=== PATIENT | female | born 1985 | race Two or more races ===

== ENCOUNTER 2017-01-03 12:56 | Emergency (ER) | payer BC ==
[~2017-01-03] VITALS: Ht 154.9 cm; Wt 161.0 kg
[2017-01-03 13:01] VITALS: Ht 154.9 cm; Wt 161.0 kg
[2017-01-03] MEDS ORDERED: SOD CHLORIDE 0.9% 1,000 ML IV STA ×2 (13:24→14:49)
[2017-01-03] MEDS ORDERED: MECLIZINE 12.5 MG TAB PO ONE (13:30)
[2017-01-03 13:58] LABS: ADD SCAN DIFF NO
[2017-01-03 14:01] LABS: BASOPHILS % 0.5 % (0.0-2.0); EOSINOPHILS # 0.1 10^3/ul (0.0-0.5); HEMATOCRIT 33.8 % (37.0-47.0); HEMOGLOBIN 10.9 g/dl (12.0-16.0); LYMPHOCYTES # 1.9 10^3/ul (0.8-2.9); LYMPHOCYTES % 29.3 % (15.0-51.0); MEAN CORPUSCULAR HEMOGLOBIN 28.1 pg (29.0-33.0); MEAN CORPUSCULAR HGB CONC 32.2 g/dl (32.0-37.0); MEAN CORPUSCULAR VOLUME 87.1 fl (82.0-101.0); MEAN PLATELET VOLUME 10.6 fl (7.4-10.4); MONOCYTE # 0.5 10^3/ul (0.3-0.9); MONOCYTES % 7.3 % (0.0-11.0); NEUTROPHIL # 3.9 10^3/ul (1.6-7.5); NEUTROPHILS % 61.6 % (39.0-77.0); PLATELET COUNT 198 10^3/UL (140-415); RED BLOOD COUNT 3.88 10^6/ul (4.20-5.40); RED CELL DISTRIBUTION WIDTH 12.8 % (11.5-14.5); WHITE BLOOD COUNT 6.3 10^3/ul (4.8-10.8)
[2017-01-03 14:16] LABS: INR 1.11; PROTIME 14.3 Sec (12.2-14.2); PT RATIO 1.1
--- NOTE | 2017-01-03 14:16 | RADRPT ---
PROCEDURE: CT brain without contrast CLINICAL INDICATION: Syncope TECHNIQUE: CT of the brain without contrast was performed on a multidetector CT scanner, with multi planar reformats. One or more of the following dose reduction techniques were used: Automated expos ure control, adjustment in mA and / or kV according to patient size, use of iterative reconstructive technique. CTDIvol = 44 mGy; DLP = 630 mGy-cm. COMPARISON: 03/03/2015 FINDINGS: No acute intracranial hemorrhage is identified. No extra-axial fluid collection is seen. There is no mass effect. No midline shift is identified. Ventricles and sulci are within normal limits for size and configuration. The density of the brain is within normal limits. Hi-white differentiation is preserved. Osseous structures are unremarkable. Mastoid air cells and imaged paranasal sinuses grossly clear. IMPRESSION: Unremarkable noncontrast CT of the brain. RPTAT: VV .Sonny Gutierrez MD, MD Date Time Electronically viewed and signed by .Sonny Gutierrez MD, on 01/03/2017 14:16 .O/
[2017-01-03 14:17] LABS: PARTIAL THROMBOPLASTIN TIME 32.3 Sec (25.0-35.0)
--- NOTE | 2017-01-03 14:17 | ERD ---
ER Documentation Chief Complaint Date/Time DATE: 01/03/17 TIME: 13:55 Chief Complaint BROUGHT IN VIA EMS DUE TO WITNESSED SYNCOPAL EPISODE HPI This is a 31-year-old female presents to the emergency department brought in by EMS after she experienced a brief transient loss of consciousness, with loss of postural tone, and complete spontaneous recovery after 30 seconds. The patient was in school when this happened just prior to arrival. The patient indicates that yesterday evening, just prior to going to bed, she developed a sudden onset of vertigo which she felt as though the room was spinning around her, nausea, with a tinnitus in her right ear. The patient felt unsteady in her gait while she was standing at school when she had the syncope episode and was caught by her teacher. She denies a headache or changes in vision. She states she has never had any similar episodes in the past. She denies fever shaking or chills and has no neck pain. The patient denies any slurred speech dysarthria or weakness of her upper and lower extremities. The patient denied any hemoptysis hematemesis or melanotic stools. The patient has no past medical history other than gestational hypertension which occurred with her second child who is 3 years of age and she also has a 5-year-old child at home. EMS indicated her blood pressure was 170/120 at the scene. ROS All systems reviewed and are negative except as per history of present illness. Medications Home Meds Reported Medications Aspirin* (Aspirin* Chew) 81 Mg Tab.chew, 81 MG PO DAILY, TAB.CHEW 01/03/17 Allergies Allergies: Coded Allergies: No Known Allergy (Unverified , 03/02/15) PMhx/Soc Medical and Surgical Hx: pt denies Medical Hx, pt denies Surgical Hx Hx Alcohol Use: No Hx Substance Use: No Hx Tobacco Use: No Smoking Status: Never smoker Physical Exam Vitals Vital Signs Date Time Temp Pulse Resp B/P Pulse Ox O2 Delivery O2 Flow Rate FiO2 01/03/17 14:16 62 154/103 67 145/100 64 143/107 01/03/17 13:01 98.3 88 18 143/100 Physical Exam Constitutional:Well-developed. Well-nourished. HEENT:Normocephalic. Atraumatic.Pupils were equal round reactive to light. Moist mucous membranes.No tonsillar exudates. Erythremia and bulging of the right tympanic membrane with no postauricular tenderness bilaterally. Neck: No nuchal rigidity. No lymphadenopathy. No posterior cervical spine tenderness or step-offs. Respiratory: Not using accessory muscles of respiration.Lungs were clear to auscultation bilaterally. No rhonchi. No rales. No wheezing. Cardiovascular: Regular rate regular rhythm.No murmurs. No rubs were appreciated.S1, S2 normal. Distal pulses are palpable 2+ bilaterally. GI: Abdomen was soft. Nontender. Non Distended. No pulsatile abdominal masses or bruits. No rebound. No guarding. Bowel sounds were present and normal. Muscle skeletal: Full range of motion of both the upper and lower extremities bilaterally.Normal muscle tone.No assymetrical calf tenderness or swelling. Skin: No petechia, no purpura. No lesions on the palms or the soles of the feet. No maculopapular rash. NEURO: Patient was alert, awake, orientated x3. Gait observed and normal with no ataxia.Speech had regular rate and rhythm. No focal neurological deficits. Fatigable peripheral nystagmus more prominent with right-sided gaze into the left-sided gaze. No facial droop. No flattening nasolabial fold. Speech was not slurred. Result Diagram: 01/03/17 1350 01/03/17 1350 Results 24 hrs Laboratory Tests Test 01/03/17 13:50 Activated Partial Thromboplast Time 32.3Sec Alanine Aminotransferase (ALT/SGPT) 18IU/L Albumin 3.7g/dl Albumin/Globulin Ratio 1.32 Alkaline Phosphatase 40IU/L Anion Gap 12 Aspartate Amino Transf (AST/SGOT) 15IU/L Basophils # 0.010^3/ul Basophils % 0.5% Blood Urea Nitrogen 11mg/dl Calcium Level 8.7mg/dl Carbon Dioxide Level 27mmol/L Chloride Level 103mmol/L Creatine Kinase 21IU/L Creatine Kinase Index 1.0 Creatinine 0.64mg/dl Creatinine Kinase MB (Mass) < 0.22ng/ml Direct Bilirubin 0.00mg/dl Eosinophils # 0.110^3/ul Eosinophils % 1.0% Globulin 2.80g/dl Glucose Level 97mg/dl Hematocrit 33.8% Hemoglobin 10.9g/dl INR International Normalized Ratio 1.11 Indirect Bilirubin 0.3mg/dl Lymphocytes # 1.910^3/ul Lymphocytes % 29.3% Mean Corpuscular Hemoglobin 28.1pg Mean Corpuscular Hemoglobin Concent 32.2g/dl Mean Corpuscular Volume 87.1fl Mean Platelet Volume 10.6fl Monocytes # 0.510^3/ul Monocytes % 7.3% Neutrophils # 3.910^3/ul Neutrophils % 61.6% Nucleated Red Blood Cells # 0.010^3/ul Nucleated Red Blood Cells % 0.0/100WBC Platelet Count 18346^3/UL Potassium Level 3.3mmol/L Prothrombin Time 14.3Sec Prothrombin Time Ratio 1.1 Red Blood Count 3.8810^6/ul Red Cell Distribution Width 12.8% Sodium Level 139mmol/L Total Bilirubin 0.3mg/dl Total Protein 6.5g/dl Troponin I < 0.012ng/ml White Blood Count 6.310^3/ul Current Medications Medications (Trade) Dose Ordered Sig/Nenita Route PRN Reason Start Time Stop Time Status Last Admin Dose Admin Sodium Chloride (NS) 1,000 ml @ 1,000 mls/hr Q1H STAT IV 01/03/17 13:24 01/03/17 14:23 DC 01/03/17 13:38 Meclizine HCl (Antivert) 25 mg ONCE ONCE PO 01/03/17 13:30 01/03/17 13:31 DC 01/03/17 15:02 Potassium Chloride 10 meq 10 meq ONCE ONCE PO 01/03/17 16:00 01/03/17 16:01 Sodium Chloride (NS) 1,000 ml @ 1,000 mls/hr Q1H STAT IV 01/03/17 14:49 01/03/17 15:48 01/03/17 15:05 Procedures/MDM The patient presented to the emergency department with a transient loss of consciousness with loss of postural tone, suggestive of a syncope episode. The differential diagnosis of syncope is vast but my workup considered common benign disorders to life-threatening processes. Therefore my differential diagnosis included but was not limited to reflex-mediated syncope such as vasovagal or carotid sinus syncope from coughing, sneezing, micturition, or GI stimulation (eg, defecation). Other etiologies in my workup included orthostatic hypotension which could cause syncope from an abrupt drop in venous return to heart from volume depletion. An EKG and cardiac enzymes were obtained to rule out cardiac arrhythmias or ischemia. Cardiopulmonary disease such as valvular disease, hypertrophic cardiomyopathy, pericardial tamponade, or pulmonary embolism were considered as a factor causing the patients syncope episode. The patient had no difference in blood pressure in both arms that could suggest aortic dissection or subclavian steal syndrome. Rectal exam was negative for fecal occult blood that could suggest GI bleeding. Ancillary laboratory work was obtained to evaluate for metabolic or electrolyte abnormalities. The patient had no witnessed brief tonic movements that could suggest postictal confusion. The patient was placed on a monitoring analyst, continuous pulse oximetry and IV access established by nursing staff. The patient received a liter bolus of 0.9 normal saline. 12 Lead EKG tracing ordered and reviewed by myself showed: Normal sinus rhythm of 69 bpm and no arrhythmia. CA interval normal. QRS duration normal. No ST segment elevation No ST segment depression. No changes consistent with acute ischemia. The patient was also experiencing vertigo and a workup did include evaluating peripheral versus central causes of vertigo. The patient did not have any strokelike symptoms producing vertigo that could suggest a lateral medullary infarction such as Wallenberg syndrome as patient had no dysphagia, no sensory loss, no Vineet's syndrome and no ipsilateral limb ataxia, dysphagia or hoarseness. [place]-Hallpike maneuver did not improve the patient's symptoms. Patient has no history of multiple sclerosis and my clinical suspicion was low for brainstem ischemia. The patient had mild anemia and hypokalemia with a potassium of 3.3. Therefore the patient was given 20 mg of potassium chloride p.o. The patient had received orthostatic vital signs while in the emergency department that were found to be normal. CT scan of the patient's head showed no acute intracerebral hemorrhage mass- effect or midline shift. The patient received a total of 2 L boluses of normal saline and she did have mild clinical dehydration also indicates she does not drink water on a regular basis. The patient had been given medication for the vertigo which included Antivert and stated her symptoms are completely resolved. She felt comfortable being discharged home. I indicates the patient if her symptoms persist she would benefit from seeing an ENT but at this time did not have any physical exam findings to suggest viral labyrinthitis. Given that there was a very mild ear infection patient will be placed on antibiotics that could have been exacerbating her vertigo. The patient was discharged home in fair condition. They were instructed to return to the emergency department at any time if there was any worsening of their condition. The patient stated they would follow up with their PCP in the next 24-48 hours to initiate a suitable medication regimen under the care of their PCP as well as to allow their PCP to monitor any drug reactions. The patient was discharged home with prescriptions after they gave informed consent to the new medication. They were also fully informed by myself on the adverse effects and adverse drug interactions in order to provide adequate safeguards to prevent possible adverse reactions to medications. Departure Diagnosis: Primary Impression: Vasovagal syncope Additional Impressions: Peripheral vertigo involving right ear Hypokalemia Condition: CHANDLER Garcia Jan 03, 2017 14:16
[2017-01-03 14:21] LABS: ALBUMIN 3.7 g/dl (3.3-4.9); CHLORIDE 103 mmol/L (97-110)
[2017-01-03 14:22] LABS: POTASSIUM 3.3 mmol/L (3.5-5.1); SODIUM 139 mmol/L (135-144)
[2017-01-03 14:24] LABS: ALBUMIN/GLOBULIN RATIO 1.32; ALKALINE PHOSPHATASE 40 IU/L (42-121); ANION GAP 12 (8-16); ASPARTATE AMINO TRANSFERASE 15 IU/L (15-46); BILIRUBIN,INDIRECT 0.3 mg/dl (0-1.1); BILIRUBIN,TOTAL 0.3 mg/dl (0.2-1.3); BLOOD UREA NITROGEN 11 mg/dl (7-20); CARBON DIOXIDE 27 mmol/L (21-31); CREATININE 0.64 mg/dl (0.44-1.00); TOTAL PROTEIN 6.5 g/dl (6.1-8.1)
[2017-01-03 14:25] LABS: ALANINE AMINOTRANSFERASE 18 IU/L (13-69); CALCIUM 8.7 mg/dl (8.4-10.2); CREATINE KINASE 21 IU/L (23-200); GLUCOSE 97 mg/dl (70-220)
[2017-01-03 14:47] LABS: CK-MB < 0.22 ng/ml (0.0-2.4); TROPONIN-I < 0.012 ng/ml (0.00-0.12)
[2017-01-03] MEDS ORDERED: ASPI81TA3 PO (14:56)
[2017-01-03] MEDS ORDERED: AMO500 PO (15:37)
[2017-01-03] MEDS ORDERED: MECL12.574 PO (15:37)
[2017-01-03 15:57] VITALS: BP 148/105; PULSE 90; RESP 20
[2017-01-03] MEDS ORDERED: POTASSIUM CHLORIDE (SR) 10 MEQ TAB PO ONE (16:00)
== END 2017-01-03 15:59 | disposition home or self-care (01) ==
LOC: E/R 12:56
DX: R55 Syncope and collapse (principal); E87.6 Hypokalemia; H81.391 Other peripheral vertigo, right ear; Z79.82 Long term (current) use of aspirin
CPT/HCPCS: 70450; 80053; 82550; 82553; 84484; 85025; 85610; 85730; 96360; J7030; Z7502; Z7610; 93005

== ENCOUNTER 2018-07-14 16:50 | Emergency (ER) | END 2018-07-14 21:57 | disposition home or self-care (01) ==